=== PATIENT | male | born 1975 | race Caucasian/White ===

== ENCOUNTER → 2017-09-05 | Day surgery (SDC) | payer OTHER ==
[~2017-09-05] VITALS: Ht 180.3 cm; Wt 115.7 kg
--- NOTE | 2017-09-05 16:58 | Operative Report ---
Operative/Inv Procedure Report Surgery Date: 09/05/17 Name of Procedure: Right knee arthroscopic partial medial meniscectomy Pre-Operative Diagnosis: #1 right knee medial meniscal tear #2 chondromalacia Post-Operative Diagnosis: Same Estimated Blood Loss: scant Surgeon/Subassembly Assembler: Ismael LEAHY,Darrell Anesthesia: laryngeal mask airway Specimens: None Tourniquet: None used Complications: None Condition: Stable Operative Indication: Patient is a 42-year-old man who had right knee problems he was evaluated in our office and was found to have a medial meniscal tear. Due to the ongoing problems with the right knee he wishes to proceed with arthroscopic management of the problem after the diagnosis was made. Symptoms interfere with normal activities of daily living. Conservative measures did not provide any significant relief nor did activity modification. He wished to proceed with arthroscopic management after discussion of risks benefits and expectations which included but were not limited to persistent knee pain, need for substance surgery, infection anesthesia risks Operative/Procedure Note Note: Patient was brought to the operating room and transferred to the operating table. Once under appropriate anesthesia the right lower extremity was prepped and draped in standard fashion. Preoperative IV antibiotics were given prophylactically. A standard infrapatellar lateral portal site was established. The patellofemoral compartment was visualized. There was some chondral softening and a flap of articular cartilage along the lateral facet. This would be dealt with later on in the case. I evaluated the trochlear surface no obvious degenerative changes. I dropped into the medial compartment. The medial meniscus was found to be intact from its anterior horn to its mid body however there was degenerative tearing of the posterior horn. I establishment infrapatellar medial portal site under direct vision and was able to probe, confirm the tear and proceed with the meniscectomy with straight biter followed by shaver. I was satisfied with the meniscectomy. He irrigation of the medial compartment followed. I then evaluated the notch. The ACL was found to be intact to direct probing and to visualization. I placed the leg into a figure 4 position and was able to evaluate the lateral meniscus from posterior horn to anterior horn. No evidence of any thickened pathology of the lateral meniscus. Mild degenerative changes of the tibial plateau laterally. I went up to the lateral gutter no evidence of loose bodies. I evaluated the total surface by probing it and used the shaver to debride the loose articular cartilage along the most lateral aspect of the lateral facet. Copious irrigation of the knee followed. I then removed all fluid and instruments and closed the portal sites with interrupted nylon suture. Appropriate dressings were applied and patient was awakened and taken the recovery room in good condition. No intraoperative Locations. Blood loss was minimal Discharge Disposition: PACU
== END ==
LOC: STS 01:23
DX: M23.221 Derangement of posterior horn of medial meniscus due to old tear or injury, right knee (principal); M94.261 Chondromalacia, right knee; Z87.891 Personal history of nicotine dependence
CPT/HCPCS: J0131; J0690; J1100; J2250; J2405